=== PATIENT | male | born 1985 | race Caucasian/White ===

== ENCOUNTER 2017-03-14 10:36 | Emergency (ER) | payer OTHER ==
[2017-03-14 10:52] VITALS: RESP 16; TEMP 98.1
[2017-03-14] MEDS ORDERED: TDAP ADULT 0.5 ML INJ (BOOSTRIX) IM ONE (10:52)
[2017-03-14] MEDS ORDERED: LET GEL TOPICAL 1 EA SYR TP ONE (11:02)
--- NOTE | 2017-03-14 12:27 | EDPHY ---
H & P Time Seen by Provider: 03/14/17 11:00 HPI/ROS: This patient sustained a laceration from a pipe cautery was sharpening at work. He complains of moderate pain from the laceration to the left hand palmar aspect 1 hour prior to arrival. There was mild to moderate bleeding that slowed with direct pressure. He arrived by private vehicle for evaluation. He denies any other injuries or other associated symptoms. ROS: Neuro: No numbness tingling Musculoskeletal: No difficulty moving the affected hand Integumentary: No feeling of foreign body to the injury 5 point ROS is otherwise negative. Smoking Status: Light smoker Physical Exam: Physical Exam Vital signs are normal. General: No acute distress Cardiac: Brisk capillary refill is intact throughout. Pulses are 2+ and symmetric in the affected extremity. Skin: No rash or pallor. Patient has a 3 cm full-thickness laceration to the center of the left hand palm through subcutaneous tissue but no deeper structures are injured. No foreign bodies and direct examination, mild bleeding is present. Neuro: Alert with no sensorimotor deficits to the affected extremity Constitutional: Initial Vital Signs Temperature (C) 36.7 C 03/14/17 10:47 Heart Rate 81 03/14/17 10:47 Respiratory Rate 16 03/14/17 10:47 Blood Pressure 134/84 H 03/14/17 10:47 O2 Sat (%) 95 03/14/17 10:47 O2 Delivery Mode Room Air Allergies/Adverse Reactions: amoxicillin Allergy (Verified 03/14/17 10:47) Home Medications: Medication Instructions Recorded NK [No Known Home Meds] 03/14/17 MDM/Departure - MDM Procedures: The wound is 3 cm in length. The wound was copiously irrigated with saline. The wound was explored for foreign bodies and none were found. The wound was prepped and draped in the normal sterile fashion. The wound was anesthetized using let solution followed by 50 50 mix of 0.5% Marcaine and 1% plain lidocaine , 27 gauge needle-2 mL with good effect. The edges were reapproximated using 4 0 Prolene-8 running sutures with good hemostasis and cosmesis. The patient tolerated the procedure well. There were no complications Medications Given: Discontinued Medications Diphtheria/Tetanus/Acell Pertussis (Boostrix) 0.5 ml IM .ONCE ONE Stop: 03/14/17 10:53 Last Admin: 03/14/17 11:00 Dose: 0.5 ml Tetracaine/Epinephrine/Lidocaine (Let Gel Topical) 1 ea TP EDNOW ONE Stop: 03/14/17 11:03 Last Admin: 03/14/17 11:03 Dose: 1 ea ED Course/Re-evaluation: Dressings placed by our tech. We counseled patient regarding wound care. Discussion: Hand wound without evidence of tendon laceration, foreign body, neurovascular compromise or other complicating factors - Depart Disposition: Home, Routine, Self-Care Clinical Impression: Hand laceration Qualifiers: Encounter type: initial encounter Foreign body presence: without foreign body Laterality: left Qualified Code(s): S61.412A - Laceration without foreign body of left hand, initial encounter Condition: Good Instructions: Care For Your Stitches (ED) Additional Instructions: Diagnosis: Left hand laceration Plan: Keep the wound clean and dry for the next 2 days. Limited work with wound covered as tolerated. Ibuprofen Tylenol for pain as needed Return for suture removal in 12 days. Return sooner if he develops redness, discharge or other concerns for infection. Referrals: NONE *PRIMARY CARE P,. [Primary Care Provider] - As per Instructions
[2017-03-14 12:47] VITALS: BP 130/80; PULSE 76; O2SAT 96
== END 2017-03-14 12:45 | disposition home or self-care (01) ==
LOC: CED 10:36
PROC: 0HQGXZZ Repair Left Hand Skin, External Approach (ICD-10-PCS; principal; 2017-03-14)
DX: S61.412A Laceration without foreign body of left hand, initial encounter (principal); F17.200 Nicotine dependence, unspecified, uncomplicated; Z23 Encounter for immunization; W45.8XXA Other foreign body or object entering through skin, initial encounter; Y92.69 Other specified industrial and construction area as the place of occurrence of the external cause; Y99.0 Civilian activity done for income or pay; Y93.89 Activity, other specified